=== PATIENT | female | born 2000 | race Caucasian/White ===

== ENCOUNTER 2021-04-10 03:26 | Emergency (ER) | payer MEDICAID ==
[~2021-04-10] VITALS: Ht 162.6 cm; Wt 56.7 kg
[2021-04-10 03:35] VITALS: BP_SYST 122
--- NOTE | 2021-04-10 03:35 | NUR ---
Patient ambulatory to bed 7 for evaluation
--- NOTE | 2021-04-10 03:45 | NUR ---
ER at bedside examining patient.
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
[2021-04-10] MEDS ORDERED: KETOROLAC TROMETHAMINE 30 MG VIAL IM ONE (04:00)
[2021-04-10] MEDS ORDERED: methocarbamoL 500 MG TABLET PO ONE (04:00)
[2021-04-10] MEDS ORDERED: IBUP-1969 PO (04:33)
[2021-04-10 04:40] VITALS: BP_SYST 122
--- NOTE | 2021-04-10 04:40 | NUR ---
Patient given written and verbal discharge instructions and verbalizes understanding. ER DR VICKY TOLEDO discussed with patient the results and treatment provided. Patient in stable condition. ID arm band removed. Patient educated on pain management and to follow up with PMD. Pain Scale . Opportunity for questions provided and answered. Medication side effect fact sheet provided.
== END 2021-04-10 04:40 | disposition home or self-care (01) ==
LOC: SED 03:26
DX: S23.3XXA Sprain of ligaments of thoracic spine, initial encounter (principal); S33.5XXA Sprain of ligaments of lumbar spine, initial encounter; Z79.899 Other long term (current) drug therapy; Y04.0XXA Assault by unarmed brawl or fight, initial encounter; Y93.89 Activity, other specified; Y92.89 Other specified places as the place of occurrence of the external cause; Y99.8 Other external cause status
CPT/HCPCS: 96372; 99283

== ENCOUNTER 2021-12-21 17:56 | Observation (INO) | payer MEDICAID ==
[~2021-12-21] VITALS: Ht 162.6 cm; Wt 87.5 kg
[~2021-12-21 17:56] MED LIST: IBUP-1969 PO
== END 2021-12-21 20:15 | disposition home or self-care (01) ==
LOC: SPU 17:56
PROVIDERS: ADMIT Obstetrics & Gynecology; ATTEND Obstetrics & Gynecology
DX: O41.03X0 Oligohydramnios, third trimester, not applicable or unspecified (principal); Z3A.39 39 weeks gestation of pregnancy
CPT/HCPCS: 59025; 76815; 81002; G0378; G0379

== ENCOUNTER 2022-06-03 02:31 | Emergency (ER) | payer MEDICAID ==
[~2022-06-03] VITALS: Ht 162.6 cm; Wt 77.1 kg
[2022-06-03 03:09] VITALS: BP_SYST 118
[2022-06-03] MEDS ORDERED: MORPHINE SULFATE 10 MG/ML VIAL IM ONE (03:30)
[2022-06-03] MEDS ORDERED: ONDANSETRON 4 MG ODT TAB PO ONE (03:30)
[2022-06-03] MEDS ORDERED: NACL 0.9% 1,000 ML IV ONE (04:00)
[2022-06-03 04:23] LABS: MONOCYTES # (AUTO) 0.8 K/uL (0.0-1.0); MONOCYTES % (AUTO) 6.2 % (1.7-9.3)
[2022-06-03 04:32] LABS: BASOPHILS % (AUTO) 0.3 % (0.0-2.0); EOSINOPHILS % (AUTO) 0.3 % (0.0-4.0); HEMATOCRIT 41.3 % (36-48); LYMPHOCYTES # (AUTO) 1.6 K/uL (1.0-5.5); LYMPHOCYTES % (AUTO) 12.6 % (20.5-51.5); MEAN CORPUSCULAR VOLUME 80 fL (79.0-98.0); NEUTROPHILS # (AUTO) 10.4 K/uL (1.8-7.7); NEUTROPHILS % (AUTO) 80.6 % (40.0-70.0); PLATELET COUNT (AUTO) 236 K/uL (130-430); RED BLOOD CELL COUNT(AUTO) 5.17 MIL/uL (4.2-6.2); RED CELL DISTRIBUTION WIDTH 14.2 % (9.0-15.0); WHITE BLOOD COUNT (AUTO) 12.9 K/uL (4.8-10.8)
[2022-06-03 04:44] LABS: ALBUMIN 4.3 g/dL (3.4-4.8); CALCIUM 9.5 mg/dL (8.4-11.0); CREATININE 1.47 mg/dL (0.55-1.30); POTASSIUM 4.2 mmol/L (3.5-5.1); TOTAL BILIRUBIN 0.7 mg/dL (0.0-1.0)
[2022-06-03 05:08] LABS: CORRECTED WHITE BLOOD COUNT 12.9 K/uL (4.5-11.0)
[2022-06-03] MEDS ORDERED: ONDANSETRON HCL 4 MG/2 ML VIAL ONE (05:42)
[2022-06-03] MEDS ORDERED: MORPHINE SULFATE 10 MG/5 ML ORAL SOL. UDC ONE (05:43)
[2022-06-03] MEDS ORDERED: MORPHINE 4 MG INJ. 4 MG/ML VIAL ONE (05:45)
[2022-06-03 06:41] LABS: BILIRUBIN,URINE NEGATIVE (NEGATIVE); BLOOD, URINE 3+ (NEGATIVE); CLARITY/URINE CLEAR (CLEAR); COLOR,URINE YELLOW (YELLOW); GLUCOSE,URINE NEGATIVE (NEGATIVE); KETONES,URINE 2+ (NEGATIVE); LEUKOCYTE ESTERASE ,URINE NEGATIVE (NEGATIVE); NITRITE, URINE NEGATIVE (NEGATIVE); PH,URINE 6.5 (5.0-8.0); PROTEIN URINE 2+ (NEGATIVE)
[2022-06-03 06:49] LABS: BACTERIA,URINE FEW /HPF (None Seen); MUCUS,URINE 1+ /LPF (None Seen); RBC,URINE 50-80 /HPF (0-3); WBC,URINE 0-3 /HPF (0-3)
[2022-06-03] MEDS ORDERED: MORPHINE 4 MG INJ. 4 MG/ML VIAL IVP ONE (07:15)
[2022-06-03] MEDS ORDERED: KETOROLAC TROMETHAMINE 30 MG VIAL IVP ONE (07:15)
[2022-06-03] MEDS ORDERED: HYDR-3917 PO (07:19)
[2022-06-03] MEDS ORDERED: IBUP-1971 PO (07:19)
[2022-06-03] MEDS ORDERED: ONDA-8 TL (07:19)
[2022-06-03 07:31] VITALS: BP_SYST 105
== END 2022-06-03 07:32 | disposition home or self-care (01) ==
LOC: SED 02:31
DX: R10.2 Pelvic and perineal pain (principal); R11.2 Nausea with vomiting, unspecified; R35.0 Frequency of micturition; Z79.899 Other long term (current) drug therapy
CPT/HCPCS: 99284; 96374; 76830; 76857; 96375; 96361; 80053; 81000; 84702; 83690; 85025; 87210; 36415; J1885; J2405; J2270; J7030